=== PATIENT | male | born 2000 | race American Indian/Alaskan Native ===

== ENCOUNTER 2019-10-08 15:41 | Emergency (ER) | payer OTHER ==
[2019-10-08 15:55] VITALS: BP 114/67
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
== END 2019-10-08 18:25 | disposition left against medical advice (07) ==
LOC: ED 15:41
DX: R51 Headache (principal); Z53.21 Procedure and treatment not carried out due to patient leaving prior to being seen by health care provider
CPT/HCPCS: 72040; 72072

== ENCOUNTER 2019-10-08 22:17 | Emergency (ER) | payer OTHER ==
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
[2019-10-09] MEDS ORDERED: IBUPROFEN 800 MG TAB PO ONE (01:23)
[2019-10-09 02:45] VITALS: BP 131/76
== END 2019-10-09 02:40 | disposition home or self-care (01) ==
LOC: ED 22:17
DX: S16.1XXA Strain of muscle, fascia and tendon at neck level, initial encounter (principal); S39.012A Strain of muscle, fascia and tendon of lower back, initial encounter; Z79.899 Other long term (current) drug therapy; V89.2XXA Person injured in unspecified motor-vehicle accident, traffic, initial encounter; Y93.89 Activity, other specified; Y92.410 Unspecified street and highway as the place of occurrence of the external cause; Y99.8 Other external cause status
CPT/HCPCS: 99282